=== PATIENT | female | born 1985 | race Caucasian/White ===

== ENCOUNTER 2024-02-10 07:44 | Outpatient (CLI) | payer BC, SELFPAY ==
--- NOTE | ~2024-02-10 | MMUS_ITS ---
EXAMINATION: MM diagnostic belem BI w arabella, US breast BI complete HISTORY: Intermittent right breast 11:00lump, 11:00-1:00 pain TECHNIQUE: ML, MLO and CC 3-D tomosynthesis images of both breasts were performed and synthetic 2-D i mages were generated. Bilateral rotated lateral craniocaudal views. CAD analysis was submitted and in terpreted. High resolution complete bilateral breast ultrasound examination including all 4 quadrants and subareolar area in each breast was performed. COMPARISON: None BREAST PARENCHYMAL COMPOSITION: The breasts are extremely dense, which lowers the sensitivity of mamm ography. FINDINGS: MAMMOGRAPHIC FINDINGS: No suspicious mass or architectural distortion, malignant calcification, skin thickening or retractio n is detected. ULTRASOUND: No suspicious mass or shadowing of either breast is detected. There is a septated approximately 5 x 5 x 6.6 x 7 mm cyst in the right breast at 9:00 subareolar area . There is an approximately 3.3 x 1.6 x 3.8 mm cyst of the right breast at 9:00 5 cm from the nipple. On the left at 2:00 3 cm from the nipple there is a parallel circumscribed hypoechoic lesion with thr ough-transmission and no internal vascularity, measuring 4.8 x 9 x 9 mm, benign in appearance At 3:00 2 cm from the nipple there is an approximately 3 mm cysts, and a 4.8 mm cyst at 4:00 1 cm fro m the nipple. On the left at 9:00 2 cm in the nipple there is a circumscribed 3.4 mm hypoechoic lesion with no inte rnal vascularity or posterior shadowing, likely benign. In the subareolar area there is a probable co mplicated 5 x 7 mm cyst, with through transmission posterior enhancement, no internal vascularity. IMPRESSION: 1. Benign findings 2. Routine annual mammographic screening beginning at age 40 is recommended unless there are earlier symptoms or physical signs BI-RADS Category 2: Benign finding(s). Reviewed, dictated and finalized at location B. IMPRESSION: 1. Benign findings 2. Routine annual mammographic screening beginning at age 40 is recommended unl ess there are earlier symptoms or physical signs BI-RADS Category 2: Benign finding(s).
== END 2024-02-10 07:45 ==
DX: N63.12 Unspecified lump in the right breast, upper inner quadrant (principal)
CPT/HCPCS: 76641; 77062; 77066; G0279